=== PATIENT | female | born 1940 | race Caucasian/White ===

== ENCOUNTER 2020-06-03 13:58 | Outpatient (CLI) | payer MEDICARE, OTHER | END 2020-06-03 13:59 | disposition home or self-care (01) | LOC: RT 13:58 | PROVIDERS: ATTEND Internal Medicine Cardiovascular Disease | DX: R00.2 Palpitations (principal) | CPT/HCPCS: 93005 ==

== ENCOUNTER 2020-06-03 14:43 | Outpatient (CLI) | payer MEDICARE, OTHER ==
[2020-06-03 15:18] LABS: BASOPHILS # (AUTO) 0.1 10^3/uL (0.0-0.1); BASOPHILS % (AUTO) 0.9 %; EOSINOPHILS # (AUTO) 0.1 10^3/uL (0.0-0.7); HGB - HEMOGLOBIN 13.6 g/dL (12.0-16.0); LYMPHOCYTES # (AUTO) 1.4 10^3/uL (1.5-3.5); LYMPHOCYTES % (AUTO) 24.3 %; MEAN CORPUSCULAR HEMOGLOBIN 30.2 pg (27.0-31.0); MEAN CORPUSCULAR HGB CONC 32.6 g/dL (32.0-36.0); MEAN CORPUSCULAR VOLUME 92.5 fL (81.0-99.0); MEAN PLATELET VOLUME 9.7 fL (7.9-10.8); MONOCYTES # (AUTO) 0.4 10^3/uL (0.0-1.0); MONOCYTES % (AUTO) 7.4 %; NEUTROPHILS # (AUTO) 3.9 10^3/uL (1.5-6.6); NEUTROPHILS % (AUTO) 66.1 %; PLT - PLATELET COUNT 265 10^3/uL (130-450); RED BLOOD COUNT 4.51 10^6/uL (4.20-5.40); WHITE BLOOD COUNT 5.9 x10^3/uL (4.8-10.8)
[2020-06-03 15:35] LABS: BUN - BLOOD UREA NITROGEN 13 mg/dL (6-20); CALCIUM 9.9 mg/dL (8.5-10.3); CARBON DIOXIDE - CO2 29 mmol/L (21-32); CHLORIDE 101 mmol/L (101-111); CHOL/HDL RATIO 3.5 (<4.4); CHOLESTEROL 221 mg/dL; CREATININE 0.9 mg/dL (0.4-1.0); GLUCOSE 101 mg/dL (70-100); HDL CHOLESTEROL 64 mg/dL; LDL CHOLESTEROL,CALCULATED 142 mg/dL; LDL/HDL RATIO 2.2 (<4.4); SODIUM 139 mmol/L (135-145); VLDL CHOLESTEROL 15 mg/dL
[2020-06-03 15:47] LABS: THYROID STIMULATING HORMONE 3.52 uIU/mL (0.34-5.60)
[2020-06-03 15:49] LABS: FREE T4 (FREE THYROXINE) 0.79 ng/dL (0.58-1.64)
== END 2020-06-03 14:44 | disposition home or self-care (01) ==
LOC: LAB 14:43
PROVIDERS: ATTEND Internal Medicine Cardiovascular Disease
DX: Z13.6 Encounter for screening for cardiovascular disorders (principal); R00.2 Palpitations
CPT/HCPCS: 36415; 80048; 80061; 83721; 84439; 84443; 85025

== ENCOUNTER 2022-09-25 07:03 | Outpatient (CLI) | payer MEDICARE, OTHER ==
[2022-09-25 14:36] LABS: BASOPHILS # (AUTO) 0.1 10^3/uL (0.0-0.1); BASOPHILS % (AUTO) 1.1 %; EOSINOPHILS # (AUTO) 0.1 10^3/uL (0.0-0.7); EOSINOPHILS % (AUTO) 1.9 %; HCT - HEMATOCRIT 42.2 % (37.0-47.0); HGB - HEMOGLOBIN 13.1 g/dL (12.0-16.0); LYMPHOCYTES # (AUTO) 1.7 10^3/uL (1.5-3.5); LYMPHOCYTES % (AUTO) 32.3 %; MEAN CORPUSCULAR HEMOGLOBIN 29.2 pg (27.0-31.0); MEAN PLATELET VOLUME 11.2 fL (7.9-10.8); MONOCYTES # (AUTO) 0.6 10^3/uL (0.0-1.0); MONOCYTES % (AUTO) 10.5 %; NEUTROPHILS # (AUTO) 2.9 10^3/uL (1.5-6.6); PLT - PLATELET COUNT 277 10^3/uL (130-450); RED BLOOD COUNT 4.49 10^6/uL (4.20-5.40); RED CELL DISTRIBUTION WIDTH 13.5 % (12.0-15.0); WHITE BLOOD COUNT 5.4 x10^3/uL (4.8-10.8)
[2022-09-27 11:38] LABS: THYROID STIMULATING HORMONE 4.62 uIU/mL (0.34-5.60)
[2022-09-27 11:39] LABS: CARBON DIOXIDE - CO2 28 mmol/L (21-32); CHLORIDE 105 mmol/L (101-111); POTASSIUM 3.6 mmol/L (3.5-5.0); SODIUM 141 mmol/L (135-145)
[2022-09-27 11:40] LABS: ALBUMIN 4.4 g/dL (3.2-5.5); ALBUMIN/GLOBULIN RATIO 1.5 (1.0-2.2); ALKALINE PHOSPHATASE 68 IU/L (42-121); ALT ALANINE AMINOTRANSFERASE 17 IU/L (10-60); AST ASPARTATE AMINOTRANSFERASE 23 IU/L (10-42); BILIRUBIN,TOTAL 1.1 mg/dL (0.2-1.0); BUN - BLOOD UREA NITROGEN 16 mg/dL (6-20); CALCIUM 9.5 mg/dL (8.5-10.3); GFR - MDRD 53 (>89); GLUCOSE 103 mg/dL (70-100); MAGNESIUM 2.4 mg/dL (1.7-2.8); TOTAL PROTEIN 7.3 g/dL (6.7-8.2)
[2022-09-27 11:41] LABS: CHOL/HDL RATIO 3.4 (<4.4); CHOLESTEROL 197 mg/dL; HDL CHOLESTEROL 58 mg/dL; LDL CHOLESTEROL,CALCULATED 126 mg/dL; LDL/HDL RATIO 2.2 (<4.4); TRIGLYCERIDES 66 mg/dL; VLDL CHOLESTEROL 13 mg/dL
== END 2022-09-25 07:04 | disposition home or self-care (01) ==
LOC: LAB.S 07:03
PROVIDERS: ATTEND Internal Medicine
DX: E83.41 Hypermagnesemia (principal); R41.3 Other amnesia; M54.50 Low back pain, unspecified
CPT/HCPCS: 36415; 80053; 80061; 82607; 83721; 83735; 84443; 85025

== ENCOUNTER 2023-06-01 08:17 | Outpatient (CLI) | payer MEDICARE, OTHER ==
[2023-06-01 14:22] LABS: BASOPHILS # (AUTO) 0.1 10^3/uL (0.0-0.1); EOSINOPHILS # (AUTO) 0.2 10^3/uL (0.0-0.7); EOSINOPHILS % (AUTO) 2.9 %; HCT - HEMATOCRIT 38.6 % (37.0-47.0); HGB - HEMOGLOBIN 12.2 g/dL (12.0-16.0); LYMPHOCYTES # (AUTO) 1.6 10^3/uL (1.5-3.5); LYMPHOCYTES % (AUTO) 26.3 %; MEAN CORPUSCULAR HEMOGLOBIN 29.8 pg (27.0-31.0); MEAN CORPUSCULAR HGB CONC 31.6 g/dL (32.0-36.0); MEAN CORPUSCULAR VOLUME 94.1 fL (81.0-99.0); MEAN PLATELET VOLUME 11.3 fL (7.9-10.8); MONOCYTES # (AUTO) 0.7 10^3/uL (0.0-1.0); MONOCYTES % (AUTO) 10.7 %; NEUTROPHILS # (AUTO) 3.6 10^3/uL (1.5-6.6); NEUTROPHILS % (AUTO) 58.9 %; PLT - PLATELET COUNT 282 10^3/uL (130-450); RED CELL DISTRIBUTION WIDTH 14.1 % (12.0-15.0); WHITE BLOOD COUNT 6.2 x10^3/uL (4.8-10.8)
[2023-06-01 16:10] LABS: ALBUMIN 4.4 g/dL (3.2-5.5); ALBUMIN/GLOBULIN RATIO 1.7 (1.0-2.2); ALKALINE PHOSPHATASE 66 IU/L (42-121); ALT ALANINE AMINOTRANSFERASE 19 IU/L (10-60); AST ASPARTATE AMINOTRANSFERASE 24 IU/L (10-42); BILIRUBIN,TOTAL 0.6 mg/dL (0.2-1.0); BUN - BLOOD UREA NITROGEN 27 mg/dL (6-20); CALCIUM 9.6 mg/dL (8.5-10.3); CARBON DIOXIDE - CO2 27 mmol/L (21-32); CHLORIDE 106 mmol/L (101-111); CHOL/HDL RATIO 3.2 (<4.4); CHOLESTEROL 206 mg/dL; CREATININE 0.9 mg/dL (0.6-1.3); GFR - MDRD 60 (>89); GLUCOSE 96 mg/dL (74-104); HDL CHOLESTEROL 64 mg/dL; LDL CHOLESTEROL,CALCULATED 130 mg/dL; MAGNESIUM 2.1 mg/dL (1.7-2.3); POTASSIUM 4.4 mmol/L (3.5-4.5); SODIUM 140 mmol/L (135-145); TRIGLYCERIDES 62 mg/dL (48-352); VLDL CHOLESTEROL 12 mg/dL
[2023-06-01 17:09] LABS: THYROID STIMULATING HORMONE 4.76 uIU/mL (0.34-5.60)
== END 2023-06-01 08:18 | disposition home or self-care (01) ==
LOC: LAB.S 08:17
PROVIDERS: ATTEND Internal Medicine
DX: Z00.00 Encounter for general adult medical examination without abnormal findings (principal); K59.00 Constipation, unspecified; R60.9 Edema, unspecified; G47.00 Insomnia, unspecified; R41.3 Other amnesia; I83.90 Asymptomatic varicose veins of unspecified lower extremity
CPT/HCPCS: 36415; 80053; 80061; 82607; 83721; 83735; 84443; 85025; 86780